=== PATIENT | female | born 1960 | race Caucasian/White ===

== ENCOUNTER → 2018-08-23 | Outpatient (REF) | payer MEDICARE | END | disposition home or self-care (01) | LOC: MRI 12:48 | PROVIDERS: ATTEND Physician Assistant Medical | DX: R41.3 Other amnesia (principal) ==

== ENCOUNTER 2019-04-30 15:20 | Emergency (ER) | payer MEDICARE, MEDICAID ==
[~2019-04-30] VITALS: Ht 154.9 cm; Wt 50.0 kg
[2019-04-30] MEDS ORDERED: TRAMADOL HYDROC50 MG PO (16:59)
[2019-04-30 17:03] VITALS: BP 116/66
== END 2019-04-30 17:09 | disposition home or self-care (01) ==
LOC: ED 15:20
DX: S70.01XA Contusion of right hip, initial encounter (principal); W18.30XA Fall on same level, unspecified, initial encounter; Y92.008 Other place in unspecified non-institutional (private) residence as the place of occurrence of the external cause

== ENCOUNTER 2020-11-02 17:22 | Emergency (ER) | payer MEDICARE ==
[~2020-11-02 17:22] MED LIST: TRAMADOL HYDROC50 MG PO
[2020-11-02] MEDS ORDERED: TESSALON PERLE100 MG PO (18:47)
[2020-11-02 19:00] VITALS: BP 112/65
== END 2020-11-02 19:08 | disposition home or self-care (01) ==
LOC: ED 17:22
DX: B34.9 Viral infection, unspecified (principal); R62.50 Unspecified lack of expected normal physiological development in childhood; Z20.822 Contact with and (suspected) exposure to COVID-19

== ENCOUNTER 2022-01-13 08:34 | Day surgery (SDC) | payer MEDICARE ==
[~2022-01-13] VITALS: Ht 152.4 cm; Wt 49.9 kg
[~2022-01-13 08:34] MED LIST changes: +ASPIRIN 81 LOW81 MG; +KAPSPARGO SPRIN50 MG; +LIPITOR20 M1 PO; +TESSALON PERLE100 MG PO
[2022-01-13] MEDS ORDERED: LISINOP/HCTZ1 TA2 PO (09:00)
[2022-01-13] MEDS ORDERED: VITAMIN D31000 UNI1 PO (09:00)
[2022-01-13] MEDS ORDERED: ZIPRASIDONE HYD80 MG PO (09:01)
[2022-01-13] MEDS ORDERED: METFORMIN500 M2 PO (09:16)
[2022-01-13 10:40] VITALS: BP 115/84
== END 2022-01-13 10:50 | disposition home or self-care (01) ==
LOC: ENDO 08:34
PROVIDERS: ATTEND Surgery
PROC: 0DJD8ZZ Inspection of Lower Intestinal Tract, Via Natural or Artificial Opening Endoscopic (ICD-10-PCS; principal; 2022-01-13)
DX: Z12.11 Encounter for screening for malignant neoplasm of colon (principal); I10 Essential (primary) hypertension

== ENCOUNTER 2022-02-09 09:39 | Emergency (ER) | payer MEDICARE ==
[~2022-02-09] VITALS: Ht 152.4 cm; Wt 50.0 kg
[~2022-02-09 09:39] MED LIST changes: +LISINOP/HCTZ1 TA2 PO; +METFORMIN500 M2 PO; +VITAMIN D31000 UNI1 PO; +ZIPRASIDONE HYD80 MG PO
[2022-02-09] MEDS ORDERED: PREDNISONE20 MG PO (10:40)
[2022-02-09] MEDS ORDERED: MELOXICAM7.5 MG PO (10:40)
[2022-02-09 10:56] VITALS: BP 99/65
== END 2022-02-09 10:50 | disposition home or self-care (01) ==
LOC: ED 09:39
DX: M25.551 Pain in right hip (principal); I10 Essential (primary) hypertension; E11.9 Type 2 diabetes mellitus without complications; R62.50 Unspecified lack of expected normal physiological development in childhood; F03.90 Unspecified dementia, unspecified severity, without behavioral disturbance, psychotic disturbance, mood disturbance, and anxiety; Z79.84 Long term (current) use of oral hypoglycemic drugs

== ENCOUNTER 2022-03-09 09:41 | Inpatient (IN) | payer MEDICARE ==
[2022-03-09] VITALS (40 sets, daily range): BP systolic 86–125; BP diastolic 60–85
[~2022-03-09] VITALS: Ht 152.4 cm; Wt 43.0 kg
[~2022-03-09 09:41] MED LIST changes: +MELOXICAM7.5 MG PO; +PREDNISONE20 MG PO
[2022-03-09 10:23] LABS: IMMATURE GRANULOCYTES 0.8 % (0.0-5.0); MEAN CORPUSCULAR HGB 29.6 pG CALC (26.0-32.0); MEAN CORPUSCULAR HGB CONC 34.4 g/dL CAL (32.0-36.0); NEUT# 8.52 thou/uL (2.00-7.15); RED BLOOD COUNT 3.28 mill/uL (4.20-5.60); RED CELL DISTRI WIDTH 14.3 % (11.5-15.5)
[2022-03-09 10:28] LABS: HEMATOCRIT 28.2 % (37.0-47.0); HEMOGLOBIN 9.7 g/dl (12.0-16.0)
[2022-03-09 10:53] LABS: INTERNATIONAL NORMALIZED RATIO 1.2 RATIO (0.7-1.3); PROTHROMBIN TIME 12.1 SECONDS (9.0-12.5)
[2022-03-09 10:53] LABS: ALBUMIN 4.6 g/dL (3.2-5.0); BILIRUBIN, TOTAL 0.4 mg/dL (0.0-1.4); TOTAL PROTEIN 7.6 g/dL (6.3-8.2)
[2022-03-09 10:57] LABS: CREATININE 4.5 mg/dL (0.5-1.0); POTASSIUM 6.1 mmol/l (3.5-5.1)
[2022-03-09 11:47] LABS: URINE BILIRUBIN - DIPSTICK NEGATIVE (NEGATIVE); URINE BLOOD DIPSTICK SMALL (NEGATIVE); URINE COLOR YELLOW; URINE GLUCOSE - DIPSTICK 250 mg/dL (NEGATIVE); URINE KETONE 15 mg/dL (NEGATIVE); URINE LEUK ESTERASE TRACE (NEGATIVE); URINE PH 5.5 (4.5-8.0); URINE PROTEIN - DIPSTICK TRACE mg/dL (NEG-TRACE); URINE SPECIFIC GRAVITY 1.015; URINE UROBILINOGEN - DIPSTICK 0.2 E.U./dL (0.2)
[2022-03-09 11:48] LABS: URINE NITRITE - DIPSTICK NEGATIVE (Negative)
[2022-03-09 12:00] LABS: URINE RBC 0-2 RBC/hpf (0-5)
[2022-03-09 12:01] LABS: URINE BACTERIA MANY hpf
[2022-03-09 14:33] LABS: BUN 67 mg/dL (8-23); BUN/CREATININE RATIO 17 (12-20 (CALC)); CHLORIDE 110 mmol/l (95-108); CREATININE 3.9 mg/dL (0.5-1.0); GFR FOR AFR.AMER. 14 ML/MIN (>=60 (CALC)); GFR OTHER RACES 12 ML/MIN (>=60 (CALC)); SODIUM 136 mmol/l (137-146)
[2022-03-09 14:34] LABS: ANION GAP 26 (6-22 (CALC)); POTASSIUM 5.2 mmol/l (3.5-5.1)
[2022-03-09 14:35] LABS: CARBON DIOXIDE < 5 mmol/l (22-30)
[2022-03-09 18:39] LABS: CREATININE 2.9 mg/dL (0.5-1.0)
[2022-03-09 20:16] LABS: CREATININE 2.8 mg/dL (0.5-1.0); POTASSIUM 3.8 mmol/l (3.5-5.1)
[2022-03-10] VITALS (27 sets, daily range): BP systolic 78–125; BP diastolic 49–80
[2022-03-10 01:27] LABS: CREATININE 2.5 mg/dL (0.5-1.0); POTASSIUM 3.1 mmol/l (3.5-5.1)
[2022-03-10 04:45] LABS: MEAN CORPUSCULAR HGB CONC 35.3 g/dL CAL (32.0-36.0); RED BLOOD COUNT 2.4 mill/uL (4.20-5.60)
[2022-03-10 04:48] LABS: HEMATOCRIT 20.4 % (37.0-47.0); HEMOGLOBIN 7.2 g/dl (12.0-16.0)
[2022-03-10 05:47] LABS: CREATININE 2.2 mg/dL (0.5-1.0)
[2022-03-10 10:05] LABS: POTASSIUM 3.2 mmol/l (3.5-5.1)
[2022-03-10 15:30] LABS: HEMATOCRIT 24.8 % (37.0-47.0); HEMOGLOBIN 8.6 g/dl (12.0-16.0); MEAN CELL VOLUME 87.3 fL CALC (80.0-100.0); MEAN CORPUSCULAR HGB 30.3 pG CALC (26.0-32.0); MEAN CORPUSCULAR HGB CONC 34.7 g/dL CAL (32.0-36.0); RED BLOOD COUNT 2.84 mill/uL (4.20-5.60); RED CELL DISTRI WIDTH 14.2 % (11.5-15.5)
[2022-03-10 20:26] LABS: HEMATOCRIT 24.8 % (37.0-47.0); HEMOGLOBIN 8.3 g/dl (12.0-16.0); MEAN CELL VOLUME 87.6 fL CALC (80.0-100.0); MEAN CORPUSCULAR HGB 29.3 pG CALC (26.0-32.0); MEAN CORPUSCULAR HGB CONC 33.5 g/dL CAL (32.0-36.0); RED BLOOD COUNT 2.83 mill/uL (4.20-5.60); RED CELL DISTRI WIDTH 14.2 % (11.5-15.5)
[2022-03-11] VITALS (24 sets, daily range): BP systolic 95–128; BP diastolic 61–84
[2022-03-11 06:23] LABS: HEMATOCRIT 20.5 % (37.0-47.0); HEMOGLOBIN 7.5 g/dl (12.0-16.0); MEAN CELL VOLUME 82.7 fL CALC (80.0-100.0); MEAN CORPUSCULAR HGB 30.2 pG CALC (26.0-32.0); MEAN CORPUSCULAR HGB CONC 36.6 g/dL CAL (32.0-36.0); RED BLOOD COUNT 2.48 mill/uL (4.20-5.60); RED CELL DISTRI WIDTH 14.1 % (11.5-15.5)
[2022-03-11 06:56] LABS: CREATININE 1.5 mg/dL (0.5-1.0); POTASSIUM 2.9 mmol/l (3.5-5.1)
[2022-03-11 06:58] LABS: ALBUMIN 2.8 g/dL (3.2-5.0)
[2022-03-11 16:44] LABS: HDL CHOLESTEROL 46 mg/dL (>=40); TOTAL TRIGLYCERIDES 151 mg/dl (30-149); VLDL CHOLESTROL 30 mg/dl (1-41 (CALC))
[2022-03-11 16:45] LABS: CALCULATED LDLCHOLESTEROL 9 mg/dL (62-129 (CALC)); CHOLESTEROL HDL RATIO 1.8 (<4.4 (CALC)); TOTAL CHOLESTEROL 85 mg/dl (0-199)
[2022-03-12] VITALS (23 sets, daily range): BP systolic 98–140; BP diastolic 59–93
[2022-03-12 05:23] LABS: HEMATOCRIT 22.4 % (37.0-47.0); HEMOGLOBIN 7.8 g/dl (12.0-16.0); IMMATURE GRANULOCYTES 0.6 % (0.0-5.0); MEAN CELL VOLUME 85.8 fL CALC (80.0-100.0); MEAN CORPUSCULAR HGB 29.9 pG CALC (26.0-32.0); MEAN CORPUSCULAR HGB CONC 34.8 g/dL CAL (32.0-36.0); NEUT# 4.61 thou/uL (2.00-7.15); RED BLOOD COUNT 2.61 mill/uL (4.20-5.60); RED CELL DISTRI WIDTH 14.5 % (11.5-15.5)
[2022-03-12 05:47] LABS: ALBUMIN 3.2 g/dL (3.2-5.0); BUN 12 mg/dL (8-23); CARBON DIOXIDE 19 mmol/l (22-30); CHLORIDE 105 mmol/l (95-108); CREATININE 1.1 mg/dL (0.5-1.0); GFR FOR AFR.AMER. > 60 ML/MIN (>=60 (CALC)); GFR OTHER RACES 50 ML/MIN (>=60 (CALC)); SODIUM 132 mmol/l (137-146)
[2022-03-12 05:48] LABS: POTASSIUM 3.9 mmol/l (3.5-5.1)
[2022-03-13] VITALS (15 sets, daily range): BP systolic 114–144; BP diastolic 71–90
[2022-03-13 05:56] LABS: HEMATOCRIT 22.1 % (37.0-47.0); HEMOGLOBIN 7.8 g/dl (12.0-16.0); MEAN CORPUSCULAR HGB CONC 35.3 g/dL CAL (32.0-36.0); RED BLOOD COUNT 2.6 mill/uL (4.20-5.60); RED CELL DISTRI WIDTH 14.7 % (11.5-15.5)
[2022-03-13 06:15] LABS: ALBUMIN 3.4 g/dL (3.2-5.0); ANION GAP 15 (6-22 (CALC)); BUN 10 mg/dL (8-23); BUN/CREATININE RATIO 9 (12-20 (CALC)); CARBON DIOXIDE 18 mmol/l (22-30); CHLORIDE 104 mmol/l (95-108); CREATININE 1.1 mg/dL (0.5-1.0); GFR FOR AFR.AMER. > 60 ML/MIN (>=60 (CALC)); GFR OTHER RACES 50 ML/MIN (>=60 (CALC)); POTASSIUM 4.5 mmol/l (3.5-5.1); SODIUM 133 mmol/l (137-146)
[2022-03-13 06:17] LABS: MAGNESIUM 1.2 mg/dL (1.6-2.3)
[2022-03-13] MEDS ORDERED: LISINOPRIL5 MG PO (09:24)
[2022-03-13] MEDS ORDERED: JANUVIA50 MG PO (09:24)
[2022-03-13] MEDS ORDERED: VITAMIN B-12500 MCG PO (09:26)
== END 2022-03-13 15:15 | disposition home health service (06) | DRG 637 ==
LOC: ED 09:41 → ED-I 12:00 → ED 12:28 → ICU 12:29
PROVIDERS: Family Medicine; Internal Medicine Nephrology; Psychiatry & Neurology Neurology; ADMIT Internal Medicine; ATTEND Internal Medicine
PROC: 05HN33Z Insertion of Infusion Device into Left Internal Jugular Vein, Percutaneous Approach (ICD-10-PCS; principal; 2022-03-09)
PROC: 3E043XZ Introduction of Vasopressor into Central Vein, Percutaneous Approach (ICD-10-PCS; 2022-03-09)
DX: E11.10 Type 2 diabetes mellitus with ketoacidosis without coma (principal); G93.41 Metabolic encephalopathy; U07.1 COVID-19; N17.0 Acute kidney failure with tubular necrosis; N39.0 Urinary tract infection, site not specified; E87.1 Hypo-osmolality and hyponatremia; I12.9 Hypertensive chronic kidney disease with stage 1 through stage 4 chronic kidney disease, or unspecified chronic kidney disease; E11.22 Type 2 diabetes mellitus with diabetic chronic kidney disease; N18.30 Chronic kidney disease, stage 3 unspecified; E86.0 Dehydration; E78.5 Hyperlipidemia, unspecified; M89.58 Osteolysis, other site; F79 Unspecified intellectual disabilities; I95.9 Hypotension, unspecified; E87.6 Hypokalemia; D63.1 Anemia in chronic kidney disease; T50.905A Adverse effect of unspecified drugs, medicaments and biological substances, initial encounter; E83.41 Hypermagnesemia; E83.39 Other disorders of phosphorus metabolism; E87.5 Hyperkalemia; D51.9 Vitamin B12 deficiency anemia, unspecified; B96.20 Unspecified Escherichia coli [E. coli] as the cause of diseases classified elsewhere; Z87.820 Personal history of traumatic brain injury; Z79.84 Long term (current) use of oral hypoglycemic drugs; Z28.310 Unvaccinated for COVID-19
CPT/HCPCS: J1756; J3420; J3475; Q3014

== ENCOUNTER 2022-03-24 02:24 | Emergency (ER) | payer MEDICARE ==
[~2022-03-24] VITALS: Ht 152.4 cm; Wt 45.0 kg
[~2022-03-24 02:24] MED LIST changes: +JANUVIA50 MG PO; +LISINOPRIL5 MG PO; +VITAMIN B-12500 MCG PO
== END 2022-03-24 11:15 | disposition expired ==
LOC: ED 02:24
PROC: 5A12012 Performance of Cardiac Output, Single, Manual (ICD-10-PCS; principal; 2022-03-24)
DX: I46.9 Cardiac arrest, cause unspecified (principal); I10 Essential (primary) hypertension; E11.9 Type 2 diabetes mellitus without complications; R62.50 Unspecified lack of expected normal physiological development in childhood